=== PATIENT | female | born 1985 ===

== ENCOUNTER 2017-07-08 09:20 | Emergency (ER) | payer BC, MEDICAID ==
[2017-07-08 09:40] VITALS: BMI 22.6
[2017-07-08] MEDS ORDERED: Prenatal Multivit/Folic Acid/Iron Tab PO SCH (10:00)
[2017-07-08 10:23] LABS: SQUAMOUS EPITHIAL 11 /hpf (0-5); URINE BACTERIA RARE (<OCC); URINE BILIRUBIN NEGATIVE (NEGATIVE); URINE BLOOD 1+ (NEGATIVE); URINE CLARITY Hazy (Clear); URINE COLOR Yellow (YELLOW); URINE GLUCOSE (UA) NORMAL (Normal); URINE LEUKOCYTE ESTERASE NEG Leu/uL (Negative); URINE PROTEIN NEGATIVE (NEGATIVE); URINE UROBILINOGEN NORMAL mg/dL (0.2-1.0)
--- NOTE | 2017-07-08 10:26 | OBHP ---
Datetime: 07/08/2017 09:59 IP Adm Impression: No Active Labor; Intact Membranes IP Admit Plan: Observation/Evaluation Admit Comment, IP Provider: Pt is [id number] @ 28 04/10 per EDC of 09/28. Pt presents to the ED with co mplaints of RLQ pain that radiates to her pelvis. She states that the pain is 4/10. The quality of th e pain is guillermina. She states that the pain feels similar to her last episode of kidney stone which sh e had on her left side. She has nausea and vomiting, The pain improves with laying down. POBHx: 2007: , Hx of SAB PMHx: left kidney stone 01/2017 PSHX: foot surgery. SocialHX; negative x 3. PE: no flank pain noted., uterus gravid. A/P: RLQ pain. 1) Abdominal US: R/O kidney stones, r/o acute cholecystitits 2) Labs: CBC, CMP, UA _ urine culture. 3) Pain: tylenol 650mg PO Pelvic Type - PN: Adequate Extremities - PN: Normal Abdomen - PN: Normal Back - PN: Normal Breast - PN: Normal Lungs - PN: Normal Heart - PN: Normal Thyroid - PN: Normal Neurologic - PN: Normal HEENT - PN: Normal General - PN: Normal FHR - Baseline A Provider: 150 EGA AdmitDate IP: 28.2 Vital Signs Provider: Reviewed IP Chief Complaint: Signs/symptoms UTI; Maternal discomfort NICHD Variability Prov Fetus A: Moderate 6-25bpm NICHD Accel Fetus A IP Provider: 15X15 FHR Category Provider Fetus A: Category I NICHD Decel Fetus A IP Provider: None Genitourinary Exam: Normal DTRs - PN: Normal
[2017-07-08] MEDS ORDERED: Lactated Ringer's 1,000 ML IV SCH ×2 (10:30→11:00)
[2017-07-08 11:16] LABS: BASO # 0.1 K/uL (0.0-0.2); BASO % 0.5 % (0.0-2.0); EOS # 0.1 K/uL (0.0-0.7); EOS % 0.6 % (0.0-4.0); HEMOGLOBIN 10.2 g/dL (11.0-16.0); LYMPH # 1.4 K/uL (1.0-4.3); MEAN CELL VOLUME 94.8 fL (81.0-99.0); MEAN CORPUSCULAR HEMOGLOBIN 33.2 pg (27.0-31.0); MONO # 0.8 K/uL (0.0-0.8); MONO % 7.8 % (0.0-10.0); NEUT # 7.9 K/uL (1.8-7.0); NEUT % 77.1 % (50.0-75.0); NRBC % 0.1 % (0.0-2.0); RBC 3.08 Mil/uL (3.80-5.20); RED CELL DISTRIBUTION WIDTH 13.5 % (11.5-14.5); WHITE BLOOD COUNT 10.3 K/uL (4.8-10.8)
[2017-07-08 11:34] LABS: ALB/GLOB RATIO 1.1 (1.0-2.1); ALBUMIN 3.7 g/dL (3.5-5.0); ALT/SGPT 15 U/L (9-52); AST/SGOT 19 U/L (14-36); BLOOD UREA NITROGEN 5 mg/dL (7-17); CALCIUM 8.8 mg/dl (8.6-10.4); GFR AFRICAN-AMERICAN > 60; GFR NON-AFRICAN AMERICAN > 60
--- NOTE | 2017-07-08 13:46 | US ---
HISTORY: RUQ pain COMPARISON: None. TECHNIQUE: Sonographic evaluation of the abdomen. FINDINGS: LIVER: Measures 16.4 cm. Normal echogenicity of the liver parenchyma. No mass. No intrahepatic bile duct dilatation. GALLBLADDER: Unremarkable. No gallstones. COMMON BILE DUCT: Measures mm. 3 PANCREAS: Unremarkable as visualized. No mass. No ductal dilatation. RIGHT KIDNEY: Measures 12.8cm. Normal cortical echogenicity and thickness. Mild hydronephrosis. Nonobstructing 8 millimeter lower pole calculus. No mass. LEFT KIDNEY: Measures 11.1cm. Normal cortical thickness and echogenicity. No mass or hydronephrosis. Nonobstructing 2 millimeter mid left renal calculus. SPLEEN: Normal in size and contour. No mass. AORTA: No aneurysmal dilatation. IVC: Unremarkable. OTHER FINDINGS: None. IMPRESSION: Mild right hydronephrosis. 8 millimeter right lower pole renal calculus. Nonobstructing 2 millimeter mid left renal calculus. No evidence of cholelithiasis or cholecystitis.
[2017-07-08 18:40] VITALS: BP 96/55; PULSE 72; RESP 18; TEMP 97; O2SAT 100
--- NOTE | 2017-07-09 09:48 | OBHP ---
Datetime: 07/08/2017 09:59 Admit Comment, IP Provider: Pt is [id number] @ 28 2/ per EDC of 09/28. Pt presents to the ED with co mplaints of RLQ pain that radiates to her pelvis. She states that the pain is 4/10. The quality of th e pain is guillermina. She states that the pain feels similar to her last episode of kidney stone which sh e had on her left side. She has nausea and vomiting, The pain improves with laying down. POBHx: 2007: , Hx of SAB PMHx: left kidney stone 01/2017 PSHX: foot surgery. SocialHX; negative x 3. PE: no flank pain noted., uterus gravid. Labs: UA:+blood, Abdominal US: Right lower pole calculus. A/P: RLQ pain -> Right non obstructing 8mm lower pole calculus. 1) Abdominal US: R/O kidney stones, r/o acute cholecystitits 2) Labs: CBC, CMP, UA _ urine culture. 3) Pain: tylenol 650mg PO 4) Anemia: recommend taking ferrous sulfate. pt will follow up with her provider. 4) Recommend keep well hydrated. at least 2L of water per day, urology follow up, follow up with Quinton Mccarty her ACCOUNTS RECEIVABLE REPRESENTATIVE 4 EGA AdmitDate IP: 28.2
== END 2017-07-08 14:22 | disposition home or self-care (01) ==
LOC: C.EROB 09:20
DX: O26.93 Pregnancy related conditions, unspecified, third trimester (principal); R10.31 Right lower quadrant pain; Z3A.28 28 weeks gestation of pregnancy
CPT/HCPCS: 76700; 80053; 81001; 85025; 87086; 99283; J7120

== ENCOUNTER 2017-09-23 06:15 | Inpatient (IN) | payer BC ==
[2017-09-23] MEDS ORDERED: Lactated Ringer's 1,000 ML IV ONE (07:05)
[2017-09-23] MEDS ORDERED: ceFAZolin IV 2 gm in Dextrose 2 GM/50 ML BAG IVPB ONE (07:05)
[2017-09-23] MEDS ORDERED: Sodium Citrate/Citric Acid 15 ml Sol PO STA (07:15)
--- NOTE | 2017-09-23 07:28 | OBHP ---
Datetime: 09/23/2017 07:24 IP Adm Impression: Term, intrauterine IP Admit Plan: Admit to unit; Initiate Section protocol Admit Comment, IP Provider: @ 39+ wks GA c/o of painful contraction incresaing intentiy an d fuencxy since last night, dnie lof, vb, +FM. Pt wiht US last week with transverse presenation. Ante: Majijunan use this s/p MFM, hyperemesis s/p zofran, False positive HIV POBHx: 2007: , Hx of SAB , PMHx: left kidney stone 01/2017 PSHX: foot surgery. SocialHX; negative x 3. A/P G3P!011 @ 39+ wks GA for PLTCS for transveres presenatin -farrah tto L+D -npo, ivf -admission labs -cont toco adn efm -anaemgesi -OR/anethsie aware -preop antiics -abodmina prep -palmer to graivty -scds Pelvic Type - PN: Adequate Extremities - PN: Normal Abdomen - PN: Normal Back - PN: Normal Breast - PN: Not Done Lungs - PN: Normal Heart - PN: Normal Thyroid - PN: Not Done Neurologic - PN: Normal HEENT - PN: Normal General - PN: Normal Presentation-Admit: Transverse Membranes, Provider: Intact Contraction Comments Provider: irregular Comments, ACOG Physical Exam: US: Transvesre presentation Gestation - Est Wks by US: 39.2 IP Hx Assessment: The History has been Reviewed and is Current EGA AdmitDate IP: 39.2 Vital Signs Provider: Reviewed IP Chief Complaint: Uterine contractions FHR Category Provider Fetus A: Category I NICHD Decel Fetus A IP Provider: None Dilatation, Provider: 1 Effacement, Provider: 50 Station, Provider: -3 Genitourinary Exam: Normal DTRs - PN: Normal
--- NOTE | 2017-09-23 07:32 | OBADHP ---
Datetime: 09/23/2017 07:24 Admit Comment, IP Provider: @ 39+ wks GA c/o of painful contraction incresaing intentiy an d fuencxy since last night, dnie lof, vb, +FM. Pt wiht US last week with transverse presenation. Ante: Majijunan use this s/p MFM, hyperemesis s/p zofran, False positive HIV POBHx: 2007: , Hx of SAB , PMHx: left kidney stone 01/2017 PSHX: foot surgery. SocialHX; negative x 3. A/P G3P!011 @ 39+ wks GA for PLTCS for transveres presenatin -farrah tto L+D -npo, ivf -admission labs -cont toco adn efm -anaemgesi -OR/anethsie aware -preop antiics -abodmina prep -palmer to graivty -scds Pelvic Type - PN: Adequate Extremities - PN: Normal Abdomen - PN: Normal Back - PN: Normal Breast - PN: Not Done Lungs - PN: Normal Heart - PN: Normal Thyroid - PN: Not Done Neurologic - PN: Normal HEENT - PN: Normal General - PN: Normal Presentation-Admit: Transverse Membranes, Provider: Intact Contraction Comments Provider: irregular Comments, ACOG Physical Exam: US: Transvesre presentation Gestation - Est Wks by US: 39.2 IP Hx Assessment: The History has been Reviewed and is Current Vital Signs Provider: Reviewed IP Chief Complaint: Uterine contractions FHR Category Provider Fetus A: Category I NICHD Decel Fetus A IP Provider: None Dilatation, Provider: 1 Effacement, Provider: 50 Station, Provider: -3 Genitourinary Exam: Normal DTRs - PN: Normal EGA AdmitDate IP: 39.2 IP Adm Impression: Term, intrauterine IP Admit Plan: Admit to unit; Initiate Section protocol Datetime: 07/08/2017 09:59 FHR - Baseline A Provider: 150 NICHD Variability Prov Fetus A: Moderate 6-25bpm NICHD Accel Fetus A IP Provider: 15X15
[2017-09-23 08:20] LABS: BASO % 0.4 % (0.0-2.0); EOS # 0.1 K/uL (0.0-0.7); EOS % 1.5 % (0.0-4.0); HEMOGLOBIN 10.7 g/dL (11.0-16.0); LYMPH # 2.1 K/uL (1.0-4.3); LYMPH % 23.9 % (20.0-40.0); MEAN CORPUSCULAR HEMOGLOBIN 33.2 pg (27.0-31.0); MEAN CORPUSCULAR HGB CONC 34.9 g/dL (33.0-37.0); MEAN PLATELET VOLUME 8.6 fL (7.2-11.7); MONO # 1.1 K/uL (0.0-0.8); NEUT # 5.5 K/uL (1.8-7.0); NEUT % 62.2 % (50.0-75.0); NRBC % 0.1 % (0.0-2.0); RBC 3.23 Mil/uL (3.80-5.20); RED CELL DISTRIBUTION WIDTH 15.1 % (11.5-14.5); WHITE BLOOD COUNT 8.9 K/uL (4.8-10.8)
[2017-09-23 08:31] LABS: ALB/GLOB RATIO 1.1 (1.0-2.1); ALBUMIN 3.4 g/dL (3.5-5.0); ALT/SGPT 19 U/L (9-52); AST/SGOT 18 U/L (14-36); BLOOD UREA NITROGEN 7 mg/dL (7-17); CALCIUM 8.9 mg/dl (8.6-10.4); GFR AFRICAN-AMERICAN > 60; GFR NON-AFRICAN AMERICAN > 60
[2017-09-23 08:33] LABS: SQUAMOUS EPITHIAL 10 /hpf (0-5); URINE BACTERIA FEW (<OCC); URINE BILIRUBIN NEGATIVE (NEGATIVE); URINE BLOOD 1+ (NEGATIVE); URINE CLARITY Hazy (Clear); URINE COLOR Yellow (YELLOW); URINE GLUCOSE (UA) NORMAL (Normal); URINE LEUKOCYTE ESTERASE 2+ Leu/uL (Negative); URINE PROTEIN NEGATIVE (NEGATIVE); URINE UROBILINOGEN NORMAL mg/dL (0.2-1.0)
[2017-09-23] MEDS ORDERED: Morphine 1 mg/ml preservative-free Inj(Duramorph) ONE (08:52)
[2017-09-23] MEDS ORDERED: Phenylephrine 10 mg/ml Inj ONE (08:52)
[2017-09-23 09:00] LABS: BARBITURATES, UR NEGATIVE (NEGATIVE); BENZODIAZEPINES, UR NEGATIVE (NEGATIVE); HEPATITIS B SURFACE AG Negative (NEGATIVE); OPIATES, UR NEGATIVE (NEGATIVE); PHENCYCLIDINE, UR NEGATIVE (NEGATIVE)
[2017-09-23] MEDS ORDERED: cefOXitin IV 2 gm in Saline 2 GM/50 ML BAG IVPB ONE (09:23)
[2017-09-23] MEDS ORDERED: Sodium Citrate/Citric Acid 15 ml Sol ONE (09:24)
[2017-09-23] MEDS ORDERED: Oxytocin 20 units in LR 2,000 ML IV ONE (09:24)
--- NOTE | 2017-09-23 10:58 | PCM.SURG1 ---
Surgeon's Initial Post Op Note - Surgeon's Notes Surgeon: Guera Mccarty MD Motor Grader Rough Grade: Julio Cesar George MD Type of Anesthesia: Spinal Pre-Operative Diagnosis: Term intrauterine , transverse presentation Operative Findings: live female infnat , transverse presentation, weight of 6lbs 9 ounces anterior placenta, true knot in umbilcal cord. Normal appearing uterus, tubes adn ovaries bilaterally. Dr Al George was cardiovascular surgical tech and present for entire cse adn essential in gainign entry, retraction, exposure , holding bladder blade, helpign to deliver , closting all layers. Post-Operative Diagnosis: same as above Operation Performed: Primary low transverse cesearean section Specimen/Specimens Removed: placenta Estimated Blood Loss: EBL {In ML}: 800 Blood Products Given: N/A Drains Used: No Drains Post-Op Condition: Good Date of Surgery/Procedure: 09/23/17 Time of Surgery/Procedure: 10:00
--- NOTE | 2017-09-23 12:56 | OBDS ---
DELIVERY PERSONNEL Delivery Doctor: Ayana Mccarty MD Scrub Nurse: Kwasi Camarena Customer Supply Chain Analyst: Charleen Flores RN Anesthesiologist: Juliana Veras MD MATERNAL INFORMATION Delivery Anesthesia: Spinal Medications in Delivery: pitocin Estimated Blood Loss (ml): 800 Placenta Cultured: Yes RN Comments: Dilia.C/section to a live baby girl attended to by dr. Leobardo walton and Kylah Vora Rn. Apga r 9:9, stable on father,s chest. Provider Comments: primary ltcxs transverse presesntain gpars 9,9 noral appearing uteurs, tubes adn ovaries pediatricn prestne for deiveyr female 6lbs 9 ounces LABOR SUMMARY EDC: 09/28/2017 00:00 No. Babies in Womb: 1 Attempted: No Labor Anesthesia: None LABOR INFORMATION Reason for Induction: Not Applicable Oxytocin: N/A Group B Beta Strep: Done, Result Unknown Antibiotics # of Doses: 1 Antibiotics Time of Last Dose: 929 Steroids Given: None Reason Steroids Not Administered: Not Applicable MEMBRANES Membranes Rupture Method: Artificial Rupture of Membranes: 09/23/2017 10:05 Length of Rupture (hrs): 0.02 Amniotic Fluid Color: Clear Amniotic Fluid Amount: Moderate Amniotic Fluid Odor: Normal STAGES OF LABOR Stage 3 hrs: 0 Stage 3 min: 1 CSECTION DELIVERY Primary Indication: Transverse/Complex Presentation CSection Urgency: Elective CSection Incidence: Primary Labor: N/A Elective: Elective CSection Incision: Lower Uterine Transverse BABY A INFORMATION Delivery Date/Time: 09/23/2017 10:06 Method of Delivery: Born in Route : No : N/A SHOULDER DYSTOCIA BABY A Delivery Date/Time: 09/23/2017 10:06 PRESENTATION/POSITION BABY A Presentation: Other Cephalic Presentation: Vertex Vertex Position: Left Occipital Transverse Breech Presentation: N/A PLACENTA INFORMATION BABY A Placenta Delivery Time : 09/23/2017 10:07 Placenta Method of Delivery: Manual Removal Placenta Status: Delivered SCORES BABY A Heart Rate 1 min: >100 bpm Resp Effort 1 min: Good Cry Reflex Irritability 1 min: Cough or Sneeze or Pulls Away Muscle Tone 1 min: Active Motion Color 1 min: Body [place], Extremities Blue SCORE 1 MIN: 9 Heart Rate 5 min: >100 bpm Resp Effort 5 min: Good Cry Reflex Irritability 5 min: Cough or Sneeze or Pulls Away Muscle Tone 5 min: Active Motion Color 5 min: Body [place], Extremities Blue SCORE 5 MIN: 9 INFORMATION BABY A Gestational Age at Delivery: 39.2 (Annotations: Data stored by [facility] on behalf of user) Gestational Status: Term Infant Outcome : Liveborn Condition : Stable Sex: Female IDENTIFICATION/MEDS BABY A ID Band Number: [id number] ID Band Location: Left Leg; Left Arm Sensor Applied: Yes Sensor Number: [id number] Sensor Location : Cord Clamp Vitamin K Given : Not Given Erythromycin Given: Not Given WEIGHT/LENGTH BABY A Infant Birthweight (gms): 2975 Infant Weight (lb): 6 Infant Weight (oz): 9 Infant Length Inches: 19.50 Infant Length cms: 49.5 CORD INFORMATION BABY A No. Cord Vessels: 3 Nuchal Cord : N/A True Knot: 1 Cord Blood Taken: Yes Suction: Mouth; Nose ASSESSMENT BABY A Complications: None Physical Findings at Delivery: Within Normal Limits Respirations: Appears Normal Lighting Designer/ALS Called : No Care By: /Kylah Vora RN Transferred To: Remains with Mother
--- NOTE | 2017-09-23 13:12 | OBDS ---
DELIVERY PERSONNEL Delivery Doctor: Ayana Mccarty MD Scrub Nurse: Kwasi Camarena Battery Container Tester Aluminum: Charleen Flores RN Anesthesiologist: Juliana Veras MD MATERNAL INFORMATION Delivery Anesthesia: Spinal Medications in Delivery: pitocin Estimated Blood Loss (ml): 800 Placenta Cultured: Yes RN Comments: Dilia.C/section to a live baby girl attended to by dr. Leobardo walton and Kylah Vora Rn. Apga r 9:9, stable on father,s chest. Provider Comments: primary ltcxs transverse presesntain gpars 9,9 noral appearing uteurs, tubes adn ovaries pediatricn prestne for deiveyr female 6lbs 9 ounces LABOR SUMMARY EDC: 09/28/2017 00:00 EDC: 09/28/2017 00:00 No. Babies in Womb: 1 Attempted: No Labor Anesthesia: None LABOR INFORMATION Reason for Induction: Not Applicable Oxytocin: N/A Group B Beta Strep: Done, Result Unknown Antibiotics # of Doses: 1 Antibiotics Time of Last Dose: 929 Steroids Given: None Reason Steroids Not Administered: Not Applicable MEMBRANES Membranes Rupture Method: Artificial Rupture of Membranes: 09/23/2017 10:05 Length of Rupture (hrs): 0.02 Amniotic Fluid Color: Clear Amniotic Fluid Amount: Moderate Amniotic Fluid Odor: Normal STAGES OF LABOR Stage 3 hrs: 0 Stage 3 min: 1 CSECTION DELIVERY Primary Indication: Transverse/Complex Presentation CSection Urgency: Elective CSection Incidence: Primary Labor: N/A Elective: Elective CSection Incision: Lower Uterine Transverse BABY A INFORMATION Infant Delivery Date/Time: 09/23/2017 10:06 Method of Delivery: Born in Route : No : N/A SHOULDER DYSTOCIA BABY A Infant Delivery Date/Time: 09/23/2017 10:06 PRESENTATION/POSITION BABY A Presentation: Other Cephalic Presentation: Vertex Vertex Position: Left Occipital Transverse Breech Presentation: N/A PLACENTA INFORMATION BABY A Placenta Delivery Time : 09/23/2017 10:07 Placenta Method of Delivery: Manual Removal Placenta Status: Delivered SCORES BABY A Heart Rate 1 min: >100 bpm Resp Effort 1 min: Good Cry Reflex Irritability 1 min: Cough or Sneeze or Pulls Away Muscle Tone 1 min: Active Motion Color 1 min: Body [place], Extremities Blue SCORE 1 MIN: 9 Heart Rate 5 min: >100 bpm Resp Effort 5 min: Good Cry Reflex Irritability 5 min: Cough or Sneeze or Pulls Away Muscle Tone 5 min: Active Motion Color 5 min: Body [place], Extremities Blue SCORE 5 MIN: 9 INFANT INFORMATION BABY A Gestational Age at Delivery: 39.2 (Annotations: Data stored by [facility] on behalf of user) Gestational Status: Term Infant Outcome : Liveborn Condition : Stable Infant Sex: Female IDENTIFICATION/MEDS BABY A ID Band Number: [id number] ID Band Location: Left Leg; Left Arm Sensor Applied: Yes Sensor Number: [id number] Sensor Location : Cord Clamp Vitamin K Given : Not Given Erythromycin Given: Not Given WEIGHT/LENGTH BABY A Birthweight (gms): 2975 Infant Weight (lb): 6 Infant Weight (oz): 9 Infant Length Inches: 19.50 Length cms: 49.5 CORD INFORMATION BABY A No. Cord Vessels: 3 Nuchal Cord : N/A True Knot: 1 Cord Blood Taken: Yes Infant Suction: Mouth; Nose ASSESSMENT BABY A Infant Complications: None Physical Findings at Delivery: Within Normal Limits Respirations: Appears Normal Blow Molding Machine Tender/ALS Called : No Care By: /Kylah Vora RN Transferred To: Remains with Mother
[2017-09-23] MEDS ORDERED: DiphenhydrAMINE 50 mg/ml Inj IVP STA (14:29)
[2017-09-23] MEDS: Simethicone 80 mg Chewtab PO SCH ×2 (18:01→21:59)
--- NOTE | 2017-09-23 23:45 | OP ---
PROCEDURE DATE: 09/23/2017 SURGEON: Guera Mccarty MD PRESSING MACHINE OPERATOR: Julio Cesar George MD TYPE OF ANESTHESIA: Spinal. PREOPERATIVE DIAGNOSES: Term intrauterine , transverse presentation. POSTOPERATIVE DIAGNOSES: Term intrauterine , transverse presentation. OPERATIVE FINDINGS: Live female infant, transverse presentation, weight of 6 pounds 9 ounces. Anterior placenta, true knot, and umbilical cord. Normal-appearing uterus, tubes, and ovaries bilaterally. Dr. Julio Cesar George was surgical pathologist who was present for the entire case and essential in gaining entry, retraction, exposure, holding the bladder blade, helping to deliver the , closing all layers. OPERATION PERFORMED: Primary low transverse section. SPECIMEN REMOVED: Placenta. ESTIMATED BLOOD LOSS: 800 mL. BLOOD PRODUCTS: None. COMPLICATIONS: None. INDICATION FOR THE PROCEDURE: A 32-year-old G3, P 1-0-1-1 at 39 plus weeks. The risks and benefits, alternatives and indications of primary section were discussed with the patient. The patient declined an external cephalic version. The patient was advised of complications, but not limited to, bleeding, infection, injury to bowel or bladder, blood vessels, pneumonia, deep venous thrombosis, pulmonary embolism. All complications were discussed with the patient. Consent was obtained. DESCRIPTION OF THE PROCEDURE: The patient was taken to operating room where she was given spinal anesthesia. Once it was found to be adequate, she was placed on the operating table in dorsal supine position. The patient was prepped and draped in the usual sterile fashion. A time-out confirmed correct patient and correct procedure. A Pfannenstiel skin incision was made with a scalpel, carried down to underlying fascia with the Gardiner scissors. The inferior aspect of the fascial incision was grasped with Allis and Kai clamps, and the underlying rectus muscles were dissected off bluntly. Attention was then turned to the superior aspect of the incision which in a similar fashion was grasped, elevated with Kai clamps and the underlying rectus muscles were dissected off bluntly. The rectus muscles were then bluntly in the midline. The peritoneum was identified, entered into clear space. The incision was extended laterally and superiorly until there was good visualization of the bladder. The lower end of the [place] was then reinserted. The vesicouterine peritoneum was incised in a transverse fashion with the Metzenbaum scissors. The bladder flap was created digitally. The lower end of the Briana was then reinserted. The lower uterine segment was incised in a transverse fashion. The back was up. The head was brought through the incision. The infant's head was delivered atraumatically after rupture of membranes, clear fluid, followed by delivery of the shoulders, followed by the body. Both oral and nasal passages of the baby were bulb suctioned. The umbilical cord was clamped and cut. The baby was handed off to the awaiting fingerer. Cord blood and cord gases were collected and sent x2. There was a true knot noted in the umbilical cord. The placenta was then delivered manually. The uterus was cleared off all clots and debris. The uterine incision was repaired with 0-Vicryl in a running continuous locked fashion. A second layer of the same suture was used to close the uterus in a running imbricated manner. There were normal-appearing uterus, tubes and ovaries bilaterally. The uterus was then returned into the abdomen. Paracolic gutters were cleared off all clots and debris. Good hemostasis at the uterine incision site. The vesicouterine peritoneum was incised with 3-0 Monocryl in a running subcuticular fashion. The peritoneum was reapproximated with 2-0 chromic in a running continuous fashion. The rectus was reapproximated and closed with 2-0 chromic in an interrupted manner. The fascia was reapproximated and closed with 0 Vicryl in a running continuous fashion. The subcutaneous layer was closed with 2-0 plain in an interrupted manner. The skin was reapproximated and closed with 3-0 Monocryl in running a subcuticular fashion. At the end of the procedure, all needles, sponge, and instrument counts were noted as correct x2. The patient tolerated the procedure well and was transferred to the recovery room in stable condition. Guera Mccarty MD
--- NOTE | 2017-09-24 07:05 | OBPPN ---
Datetime: 09/24/2017 06:59 PP Pain Prov: Within normal limits PP Nausea Prov: Denies PP Flatus Prov: Yes PP BM Prov: No PP Breasts Prov: Normal PP Heart Prov: Normal PP Lungs Prov: Normal PP Abdomen/Uterus Prov: Normal PP Lochia Prov: Normal PP Vulva/Perineum Prov: Normal PP CVA Tenderness Prov: Normal PP Extremities Prov: Normal PP C/S Incision Prov: Normal PP Progress Prov: Normal PP Impression Prov: Normal progression PP Plan Prov: Continue present management PP Progress Note Prov: pt seen and examined adn reports pain is well controlled. Pt denies any fever , chills, nause, vomiing, cp, sob, bowel concner. pt is ambulating, voiding, passing flatus, tolerat ing regular diet, bresat feedign adn denies any sadness or depression VSS PE GEN NAD AAO x 3 RESP: CTAB?/l CVS: RRR, +S1/S2 ABD: Soft, NT/ND, no ugarding, no rebound tendnerss, no rigidity, B+S FUNDUS: Firm, at leve of umbiulics, non tender INCISICON C/D/I VE: minimal lochia, non foul smelling EXT: no calf tendnerss b/l, negatrive homans sign A/P s/p PLTCS POD #1 am labs pain managment regular diet social work conslt: re: UDS ptadvsied encourage mabatiuon / breast feeding IP PP Procedures: None Vital Signs Provider PP: Reviewed; Within Normal Limits
[2017-09-24 08:50] LABS: HEMOGLOBIN 10.8 g/dL (11.0-16.0); MEAN CELL VOLUME 95.4 fL (81.0-99.0); MEAN CORPUSCULAR HEMOGLOBIN 32.6 pg (27.0-31.0); MEAN CORPUSCULAR HGB CONC 34.2 g/dL (33.0-37.0); MEAN PLATELET VOLUME 8.1 fL (7.2-11.7); RBC 3.32 Mil/uL (3.80-5.20); RED CELL DISTRIBUTION WIDTH 15.2 % (11.5-14.5)
[2017-09-24 08:55] LABS: WHITE BLOOD COUNT 13.8 K/uL (4.8-10.8)
[2017-09-24 09:13] LABS: ALB/GLOB RATIO 1.2 (1.0-2.1); ALBUMIN 3.2 g/dL (3.5-5.0); ALT/SGPT 27 U/L (9-52); AST/SGOT 28 U/L (14-36); BLOOD UREA NITROGEN 6 mg/dL (7-17); CALCIUM 8.8 mg/dl (8.6-10.4); GFR AFRICAN-AMERICAN > 60; GFR NON-AFRICAN AMERICAN > 60
[2017-09-24] MEDS ORDERED: Prenatal Multivit/Folic Acid/Iron Tab PO SCH (10:00)
[2017-09-24] MEDS: Simethicone 80 mg Chewtab PO SCH ×4 (10:18→22:00)
[2017-09-24] MEDS: Prenatal Multivit/Folic Acid/Iron Tab PO SCH (10:20)
[2017-09-24] MEDS ORDERED: Bisacodyl 5mg EC Tab PO ONE (10:54)
[2017-09-24] MEDS: Oxycodone/Acetaminophen 5/325 mg Tab PO PRN (15:38)
[2017-09-25] MEDS: Oxycodone/Acetaminophen 5/325 mg Tab PO PRN ×4 (01:11→21:16)
[2017-09-25] MEDS: Simethicone 80 mg Chewtab PO SCH ×4 (10:20→21:18)
[2017-09-25] MEDS: Prenatal Multivit/Folic Acid/Iron Tab PO SCH (10:21)
--- NOTE | 2017-09-25 12:34 | OBPPN ---
Datetime: 09/25/2017 12:15 PP Pain Prov: Within normal limits PP Nausea Prov: Denies PP Flatus Prov: Yes PP BM Prov: No PP Breasts Prov: Normal PP Heart Prov: Normal PP Lungs Prov: Normal PP Abdomen/Uterus Prov: Normal PP Lochia Prov: Normal PP Vulva/Perineum Prov: Normal PP CVA Tenderness Prov: Normal PP Extremities Prov: Normal PP C/S Incision Prov: Normal PP Progress Prov: Normal PP Impression Prov: Normal progression PP Plan Prov: Continue present management PP Progress Note Prov: pt seen and examined adn reports pain over incisn site.. Pt denies any fever, chills, nause, vomiing, cp, sob, bowel concner. pt is ambulating, voiding, passing flatus, tolerati ng regular diet, bresat feedign adn denies any sadness or depression VSS PE GEN NAD AAO x 3 RESP: CTAB?/l CVS: RRR, +S1/S2 ABD: Soft, NT/ND, no ugarding, no rebound tendnerss, no rigidity, B+S FUNDUS: Firm, below leve of umbiulics, non tender INCISICON C/D/I VE: minimal lochia, non foul smelling EXT: no calf tendnerss b/l, negatrive homans sign A/P s/p PLTCS POD #2 pain managment regular diet social work conslt: re: UDS ptvadvsied encourage mabatiuon / breast feeding Vital Signs Provider PP: Reviewed; Within Normal Limits
--- NOTE | 2017-09-26 04:40 | OBPPN ---
Datetime: 09/26/2017 04:38 PP Pain Prov: Within normal limits PP Nausea Prov: Denies PP Flatus Prov: Yes PP BM Prov: No PP Breasts Prov: Normal PP Heart Prov: Normal PP Lungs Prov: Normal PP Abdomen/Uterus Prov: Normal PP Lochia Prov: Normal PP Vulva/Perineum Prov: Normal PP CVA Tenderness Prov: Normal PP Extremities Prov: Normal PP C/S Incision Prov: Normal PP Progress Prov: Normal PP Impression Prov: Normal progression PP Plan Prov: Continue present management PP Progress Note Prov: pt seen and examined adn reports pain with passing gas but feels better each day. Pt denies any fever, chills, nause, vomiing, cp, sob, bowel or bladder concerns. pt is ambulatin g, voiding, passing flatus, tolerating regular diet, bresat feedign adn denies any sadness or depress ion VSS PE GEN NAD AAO x 3 RESP: CTAB?/l CVS: RRR, +S1/S2 ABD: Soft, NT/ND, no ugarding, no rebound tendnerss, no rigidity, B+S FUNDUS: Firm, below leve of umbiulics, non tender INCISICON C/D/I VE: minimal lochia, non foul smelling EXT: no calf tendnerss b/l, negatrive homans sign s/p PLTCS POD #3 social work conslt: re: UDS pt vadvsied encourage mabatiuon / breast feeding possible dc home today Vital Signs Provider PP: Reviewed; Within Normal Limits
--- NOTE | 2017-09-26 04:40 | OBDCSUM ---
Datetime: 09/26/2017 04:40 Discharged to, Provider: Home Follow up at, Provider: Dr Mccarty Disch Instr Activity: Normal activity Disch Instr Diet: Regular Discharge Instructions, Provider: Routine instructions given Discharge Diagnosis, Provider: Term Delivered Discharge Time: 09/26/2017 04:40 Follow up in weeks, Provider: 1 week Disch Referrals: None Contraception discussed, Prov: Yes Disch Activity Restrictions: No sexual activity; Nothing in vagina - Sholes, tampons, douche Discharge Comment, Provider: precautions given Contraception after Delivery: Not Planning to Use
[2017-09-26] MEDS: Oxycodone/Acetaminophen 5/325 mg Tab PO PRN (07:50)
[2017-09-26] MEDS: Simethicone 80 mg Chewtab PO SCH ×2 (09:43→14:32)
[2017-09-26 20:38] VITALS: BP 111/65; PULSE 70; RESP 18; TEMP 98; O2SAT 99
== END 2017-09-26 15:40 | disposition home or self-care (01) | DRG 765 ==
LOC: C.EROB 06:15 → C.4D 07:29 → C.4M 12:48
PROVIDERS: ADMIT Obstetrics & Gynecology; ATTEND Obstetrics & Gynecology
PROC: 10D00Z1 Extraction of Products of Conception, Low, Open Approach (ICD-10-PCS; principal; 2017-09-23)
DX: O69.2XX0 Labor and delivery complicated by other cord entanglement, with compression, not applicable or unspecified (principal); O99.324 Drug use complicating childbirth; Z3A.39 39 weeks gestation of pregnancy; O21.0 Mild hyperemesis gravidarum; F12.10 Cannabis abuse, uncomplicated; O32.2XX0 Maternal care for transverse and oblique lie, not applicable or unspecified; Z37.0 Single live birth